=== PATIENT | female | born 2000 | race Caucasian/White ===

== ENCOUNTER 2025-05-18 13:57 | Emergency (ER) | payer MEDICAID, SELFPAY ==
[2025-05-18 14:54] LABS: CAUTI Indications for Culture Pregnancy; Glucose, Urine (Dipstick) Normal (Negative); Leukocyte 25 Leu/uL (Negative); Protein, Urine (Dipstick) 20 mg/dL (Neg-Trace); RBC/HPF Greater than 50 HPF (0-3); Specific Gravity, Urine 1.016 (1.002-1.036)
[2025-05-18 14:55] LABS: #Basophils 0.05 10x3/uL (0.0-0.2); #Eosinophils 0.36 10x3/uL (0.0-0.7); #Monocytes 0.79 10x3/uL (0.11-0.59); #Neutrophils 6.81 10x3/uL (1.40-6.50); %Basophils 0.4 % (0.0-1.0); %Eosinophils 3.2 % (0.0-10.0); %Lymphocytes 29.2 % (21.0-51.0); %Monocytes 6.9 % (0.0-10.0); %Neutrophils 59.9 % (42.0-75.0); Hematocrit 39.3 % (36.0-47.0); Hemoglobin 12.6 g/dL (12.0-16.0); Mean Corpuscular Hemoglobin 27.9 pg (27.0-31.0); Mean Corpuscular Volume 86.9 fL (78.0-98.0); Platelet Count 333 10x3/uL (130-400); Red Blood Cell (RBC) Count 4.52 mill/uL (4.20-5.40); White Blood Cell (WBC) Count 11.38 10x3/uL (4.8-10.8)
[2025-05-18 15:01] LABS: Bacteria/HPF 1+ HPF (None Seen)
[2025-05-18 15:02] LABS: Urine Culture Reflex Yes Yes
[2025-05-18 15:12] LABS: ALT (SGPT) 15 U/L (Less than 34); AST (SGOT) 20 U/L (11-34); Albumin 4.1 g/dL (3.1-4.5); Alkaline Phosphatase 61 U/L (40-110); Anion Gap 12 mmol/L (10-20); BUN (Urea Nitrogen) 8 mg/dL (7.0-18.7); Bilirubin, Total 0.3 mg/dL (0.3-1.2); Calc. Creatinine Clearance 0 mL/min (70-130); Calcium 9.2 mg/dL (7.8-10.44); Carbon Dioxide 23 mmol/L (22-29); Chloride 107 mmol/L (98-107); Globulin 2.9 g/dL (2.4-3.5); Glucose 102 mg/dL (70-105); Potassium 3.8 mmol/L (3.5-5.1); Sodium 138 mmol/L (136-145)
== END 2025-05-18 16:51 | disposition home or self-care (01) ==
LOC: ERS 13:57
DX: O20.0 Threatened abortion (principal); N39.0 Urinary tract infection, site not specified; F17.210 Nicotine dependence, cigarettes, uncomplicated
CPT/HCPCS: 76801; 76817; 80053; 81001; 84702; 85025; 86900; 86901; 87086